=== PATIENT | female | born 2000 | race Two or more races ===

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

== ENCOUNTER 2024-01-10 16:52 | Emergency (ER) | payer OTHER ==
[~2024-01-10] VITALS: Ht 152.4 cm; Wt 51.4 kg
[2024-01-10] MEDS ORDERED: ACET-66 PO (22:23)
[2024-01-10] MEDS ORDERED: OMEP20 PO (22:23)
[2024-01-10] MEDS ORDERED: IBUP-45 PO (22:23)
[2024-01-10] MEDS: IBUPROFEN 200 MG TABLET PO ONE (22:52)
[2024-01-10] MEDS: ACETAMINOPHEN 500 MG TABLET PO ONE (22:52)
[2024-01-10] MEDS: OMEPRAZOLE 20 MG CAPSULE PO ONE (22:52)
[2024-01-10 23:00] VITALS: BP 119/68; PULSE 69; RESP 16; TEMP 97.3
== END 2024-01-10 23:00 | disposition home or self-care (01) ==
LOC: EMS 16:52
DX: S29.011A Strain of muscle and tendon of front wall of thorax, initial encounter (principal); X50.0XXA Overexertion from strenuous movement or load, initial encounter; Y93.89 Activity, other specified; Y92.511 Restaurant or cafe as the place of occurrence of the external cause; Y99.0 Civilian activity done for income or pay
CPT/HCPCS: 71045; 84703; 93005; 99285